=== PATIENT | male | born 1970 | race Caucasian/White ===

== ENCOUNTER → 2024-03-17 18:20 | Outpatient (REF) | payer OTHER, SELFPAY | LOC: PAVMRI 18:20 | PROVIDERS: ATTENDING PHYSICIAN Family Medicine; REFERRING PHYSICIAN Psychiatry & Neurology Neurology | DX: M51.26 Other intervertebral disc displacement, lumbar region (principal) | CPT/HCPCS: 72148 ==

== ENCOUNTER 2024-08-31 17:37 | Emergency (ER) | payer OTHER, SELFPAY ==
[2024-08-31 17:42] VITALS: BP 149/98
[2024-08-31 19:27] VITALS: BP 135/90
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
== END 2024-08-31 19:42 | disposition home or self-care (01) ==
LOC: EMR 17:37
PROVIDERS: EMERGENCY PHYSICIAN Emergency Medicine; FAMILY PHYSICIAN Family Medicine
DX: S06.0XAA Concussion with loss of consciousness status unknown, initial encounter (principal); S13.4XXA Sprain of ligaments of cervical spine, initial encounter; Y92.410 Unspecified street and highway as the place of occurrence of the external cause; Z98.1 Arthrodesis status
CPT/HCPCS: 99284; 70450; 72125

== ENCOUNTER → 2024-09-30 06:48 | Outpatient (REF) | payer OTHER, SELFPAY | LOC: MRI 06:48 | PROVIDERS: ATTENDING PHYSICIAN Psychiatry & Neurology Pain Medicine; FAMILY PHYSICIAN Family Medicine | DX: M54.12 Radiculopathy, cervical region (principal); M54.16 Radiculopathy, lumbar region | CPT/HCPCS: 72141; 72148 ==

== ENCOUNTER 2025-03-10 17:35 | Emergency (ER) | payer OTHER, SELFPAY ==
[2025-03-10 17:50] VITALS: BP 164/90
[2025-03-10 18:18] VITALS: BMI 28.6
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
== END 2025-03-10 20:14 | disposition home or self-care (01) ==
LOC: EMR 17:35
PROVIDERS: EMERGENCY PHYSICIAN Emergency Medicine; FAMILY PHYSICIAN Family Medicine
DX: T81.31XA Disruption of external operation (surgical) wound, not elsewhere classified, initial encounter (principal); Y84.8 Other medical procedures as the cause of abnormal reaction of the patient, or of later complication, without mention of misadventure at the time of the procedure
CPT/HCPCS: 12020; 99282